=== PATIENT | male | born 1945 | race Caucasian/White ===

== ENCOUNTER 2019-10-29 23:53 | Emergency (ER) | payer OTHER ==
[~2019-10-29] VITALS: Ht 182.9 cm; Wt 69.2 kg
[2019-10-30] MEDS ORDERED: LIDOCAINE 1% PF 2 ML VIAL. ONE (00:15)
[2019-10-30] MEDS ORDERED: LIDOCAINE 1%/EPI 1:100,000 20 ML VIAL. ONE (00:16)
[2019-10-30] MEDS ORDERED: LIDOCAINE 1% Multi-Dose 20 ML VIAL. INJ ONE (00:30)
--- NOTE | 2019-10-30 01:14 | PHYS DOC ---
Adult General Chief Complaint Chief Complaint: SUICDAL IDEATION [facility] HPI Patient is a 74 year old male who presents with multiple lacerations after attempting to harm himself. Patient broke apart a disposable razor and took one of the blades and cut both sides of his neck as well as his left lower leg. He rates pain as mild. Patient denies any homicidal ideation.[] Review of Systems Review of Systems Constitutional: Denies fever or chills [] Respiratory: Denies cough or shortness of breath [] Cardiovascular: No additional information not addressed in HPI [] Musculoskeletal: Complains of bilateral neck and lower leg pain [] Integument: Lacerations to the neck and left lower leg[] Neurologic: Denies headache, focal weakness or sensory changes [] All other systems were reviewed and found to be within normal limits, except as documented in this note. Current Medications Current Medications Current Medications Medications (Trade) Dose Ordered Sig/[facility] Start Time Stop Time Status Last Admin Dose Admin Diphtheria/ Tetanus/Acell Pertussis (Boostrix) 0.5 ml ONCE ONCE 10/30/19 02:00 10/30/19 02:01 Lidocaine HCl (Lidocaine 1% 20ml Vial) 20 ml 1X ONCE 10/30/19 00:30 10/30/19 00:31 DC 10/30/19 00:20 20 ML Lidocaine HCl (Xylocaine-Mpf 1% 2ml Vial) 2 ml STK-MED ONCE 10/30/19 00:15 10/30/19 00:15 DC Lidocaine/ Epinephrine (LIDOCAINE 1%-EPI 1:100,000 Multi-Dose) 20 ml STK-MED ONCE 10/30/19 00:16 10/30/19 00:16 DC Allergies Allergies Allergies Coded Allergies Type Severity Reaction Last Updated Verified No Known Drug Allergies 10/30/19 No Physical Exam Physical Exam Constitutional: Well developed, well nourished, no acute distress, non-toxic appearance. [] HENT: Normocephalic, atraumatic, bilateral external ears normal, oropharynx moist, no oral exudates, nose normal. [] Eyes: PERRLA, EOMI, conjunctiva normal, no discharge. [] Neck: Normal range of motion, supple, no stridor. Lacerations are noted to both sides of neck extending from the lower ear anteriorly. Laceration on the left is 5 cm in length, with sharp margins, extending into subcutaneous tissue and is linear. Laceration on right side is 4 cm in length, with sharp margins, extendi ng into subcutaneous tissue and is linear. [] Cardiovascular: Regular rate and rhythm[] Lungs & Thorax: Bilateral breath sounds clear to auscultation [] Abdomen: Bowel sounds normal, soft, no tenderness. [] Skin: Lacerations as noted above. Left lower leg has a laceration measuring 11 cm with approximately 4 cm section extending down into muscle. Laceration is linear. No foreign body identified. [] Extremities: No cyanosis, no clubbing, ROM intact, no edema. [] Neurologic: Alert and oriented X 3, no focal deficits noted. [] Psychologic: Affect normal, mood normal. [] EKG EKG [] Radiology/Procedures Radiology/Procedures [] Course & Med Decision Making Course & Med Decision Making Pertinent Labs and Imaging studies reviewed. (See chart for details) Laceration Repair by me: Anesthesia: 1% with epinephrine lidocaine locally Location: Left side of neck; right side of back; left lower leg Tendon/Joint/Nerves: No injury Foreign body: None detected after copious irrigation and exploration Technique: A total of 13 Simple Interrupted Sutures were placed to left side of neck; a total of 8 simple interrupted sutures were placed to right side of neck; a total of 7 rock were placed to left lower leg Complexity: No subcutaneous sutures/mucosal repair/edge excision Post Closure Length: 5 cm to left side of neck; 4 cm to right side of neck; 11 cm to left lower leg Patient's bleeding was easily controlled in the department and there is no indication of anemia. No evidence of compartment syndrome, neurologic injury, vascular injury, open joint, tendon laceration, or foreign body. Patient is appropriate for outpatient follow up. 48 hour wound check. Scar minimization instructions given. Dragon Disclaimer Dragon Disclaimer This electronic medical record was generated, in whole or in part, using a voice recognition dictation system. Departure Departure Impression: Primary Impression: Suicidal ideation Additional Impression: Multiple lacerations Disposition: HOME, SELF-CARE Condition: STABLE Referrals: NO PCP (PCP) Patient Instructions: Laceration Care, Adult, Suicidal Feelings, How to Help Yourself, Suicide, Helping Someone Who is Suicidal Additional Instructions: Sutures to neck should be removed in 5-7 days. Rock in the left lower leg should be removed in 10-14 days. Problem Qualifiers WILD NOEL Jr. DO Oct 30, 2019 01:14
[2019-10-30 01:45] VITALS: BP 143/98
[2019-10-30] MEDS ORDERED: DIPHTH,PERTUSS(ACELL),TET TOX 0.5 ML DISP.SYRIN. VAX IM ONE (02:00)
== END 2019-10-30 02:01 | disposition home or self-care (01) ==
LOC: EEVIPCON 23:53 → ER 23:53
DX: S11.91XA Laceration without foreign body of unspecified part of neck, initial encounter (principal); S81.812A Laceration without foreign body, left lower leg, initial encounter; R45.851 Suicidal ideations; X78.8XXA Intentional self-harm by other sharp object, initial encounter; Y93.89 Activity, other specified; Y92.89 Other specified places as the place of occurrence of the external cause; Y99.8 Other external cause status
CPT/HCPCS: 12005; 99284; J3490

== ENCOUNTER 2019-11-01 23:01 | Emergency (ER) | payer OTHER ==
[~2019-11-01] VITALS: Ht 175.3 cm; Wt 84.1 kg
--- NOTE | 2019-11-01 23:10 | PHYS DOC ---
Past Medical History Past Medical History: Asthma, Constipation, GERD, High Cholesterol, Hypertension, Hypothyroid, Prostatitis Additional Past Medical Histor: MOOD DISORDER, MENTAL HEALTH DISORDER, PSORIASIS, DERMATITIS Past Surgical History: No Surgical History Additional Past Surgical Histo: UNK Smoking Status: Former Smoker Alcohol Use: None Adult General Chief Complaint Chief Complaint: SEIZURE HPI HPI 74-year-old male presents to the emergency department via EMS after seizure-type activity. Patient has no underlying history of seizures. Patient is an inmate, seizure activity was witnessed while patient was laying in bed. Patient did not fall. He has underlying history of asthma, hypertension, mental health disorder, mood disorder however no seizure history. EMS states patient prior to their arrival was postictal, he returned to baseline appears to be answering questions appropriately. He has no complaints at this time. He denies any headache, chest pain, shortness breath, nausea, vomiting, abdominal pain. She was seen at this facility on for multiple lacerations after attempting to harm himself. Review of Systems Review of Systems Constitutional: Denies fever or chills [] Respiratory: Denies cough or shortness of breath [] Cardiovascular: No additional information not addressed in HPI [] GI: Denies abdominal pain, nausea, vomiting, bloody stools or diarrhea [] Musculoskeletal: Denies back pain or joint pain [] Integument: Denies rash or skin lesions [] Neurologic: Denies headache, focal weakness or sensory changes [] All other systems were reviewed and found to be within normal limits, except as documented in this note. Current Medications Current Medications Current Medications Medications (Trade) Dose Ordered Sig/[facility] Start Time Stop Time Status Last Admin Dose Admin Magnesium Oxide (Magnesium Oxide) 400 mg 1X ONCE 11/02/19 00:30 11/02/19 00:31 11/02/19 00:15 400 MG Allergies Allergies Allergies Coded Allergies Type Severity Reaction Last Updated Verified No Known Drug Allergies 10/30/19 No Physical Exam Physical Exam Constitutional: Well developed, well nourished, no acute distress, non-toxic appearance. [] HENT: Normocephalic, atraumatic, bilateral external ears normal, oropharynx moist, no oral exudates, nose normal. [] Eyes: PERRLA, EOMI, conjunctiva normal, no discharge. [] Neck: Normal range of motion, no tenderness, supple, no stridor. [] Cardiovascular:Heart rate regular rhythm, no murmur [] Lungs & Thorax: Bilateral breath sounds clear to auscultation [] Abdomen: Bowel sounds normal, soft, no tenderness, no masses, no pulsatile masses. [] Skin: Warm, dry, no erythema, no rash. [] Back: No tenderness, no CVA tenderness. [] Extremities: No tenderness, no edema. [] Neurologic: Alert and oriented X 3, no focal deficits noted. [] Psychologic: Affect normal, judgement normal, mood normal. [] Current Patient Data Vital Signs Vital Signs Date Time Temp Pulse Resp B/P (MAP) Pulse Ox O2 Delivery O2 Flow Rate FiO2 11/01/19 23:02 98.6 79 18 155/88 (110) 96 Room Air 98.6 Lab Values Laboratory Tests Test 11/01/19 23:16 White Blood Count 4.4 x10^3/uL (4.0-11.0) Red Blood Count 4.60 x10^6/uL (4.30-5.70) Hemoglobin 13.8 g/dL (13.0-17.5) Hematocrit 41.0 % (39.0-53.0) Mean Corpuscular Volume 89 fL (79-100) Mean Corpuscular Hemoglobin 30 pg (25-35) Mean Corpuscular Hemoglobin Concent 34 g/dL (31-37) Red Cell Distribution Width 14.4 % (11.5-14.5) Platelet Count 165 x10^3/uL (140-400) Neutrophils (%) (Auto) 71 % (31-73) Lymphocytes (%) (Auto) 12 % (24-48) L Monocytes (%) (Auto) 13 % (0-9) H Eosinophils (%) (Auto) 3 % (0-3) Basophils (%) (Auto) 1 % (0-3) Neutrophils # (Auto) 3.1 x10^3/uL (1.8-7.7) Lymphocytes # (Auto) 0.5 x10^3/uL (1.0-4.8) L Monocytes # (Auto) 0.6 x10^3/uL (0.0-1.1) Eosinophils # (Auto) 0.1 x10^3/uL (0.0-0.7) Basophils # (Auto) 0.0 x10^3/uL (0.0-0.2) Sodium Level 141 mmol/L (136-145) Potassium Level 3.5 mmol/L (3.5-5.1) Chloride Level 106 mmol/L (98-107) Carbon Dioxide Level 27 mmol/L (21-32) Anion Gap 8 (6-14) Blood Urea Nitrogen 18 mg/dL (8-26) Creatinine 0.9 mg/dL (0.7-1.3) Estimated GFR (Cockcroft-Gault) 82.3 BUN/Creatinine Ratio 20 (6-20) Glucose Level 112 mg/dL (70-99) H Lactic Acid Level 1.8 mmol/L (0.4-2.0) Calcium Level 8.7 mg/dL (8.5-10.1) Magnesium Level 1.7 mg/dL (1.8-2.4) L Total Bilirubin 0.3 mg/dL (0.2-1.0) Aspartate Amino Transferase (AST) 12 U/L (15-37) L Alanine Aminotransferase (ALT) 19 U/L (16-63) Alkaline Phosphatase 78 U/L (46-116) Creatine Kinase 112 U/L (39-308) Total Protein 6.2 g/dL (6.4-8.2) L Albumin 3.1 g/dL (3.4-5.0) L Albumin/Globulin Ratio 1.0 (1.0-1.7) Laboratory Tests 11/01/19 23:16 Laboratory Tests 11/01/19 23:16 EKG EKG [] Radiology/Procedures Radiology/Procedures [facility] [address] [place] [address] IMAGING REPORT Signed PATIENT: NEHEMIAS MCCLENDON ACCOUNT: [id number] : 1945 LOCATION: ER AGE: 74 SEX: M EXAM STATUS: REG ER ORD. PHYSICIAN: KRISTIN HATHAWAY MD REASON: seizure - no history PROCEDURE: CT HEAD WO CONTRAST Exam: CT head INDICATION: Seizure TECHNIQUE: Sequential axial images through the head were obtained without the administration of IV contrast. Comparisons: None FINDINGS: No focal parenchymal lesion or hemorrhage is identified. There is no midline shift or sulcal effacement. No acute vascular territory infarction is identified. Coreas-white distinction is preserved. The ventricular system is within normal limits without compression hydrocephalus. The basal cisterns are well maintained. The visualized portions of the paranasal sinuses and mastoid air cells are well-pneumatized. No acute fractures. IMPRESSION: No acute intracranial abnormality. Exposure: One or more of the following in the visualized dose reduction techniques were utilized for this examination: 1. Automated exposure control 2. Adjustment of the MA and/or KV according to patient size Use of iterative of reconstructive technique Electronically signed by: Gianni Johnson MD (11/01/2019 11:36 PM) [id number] DICTATED and SIGNED BY: GIANNI JOHNSON MD DATE: 11/01/192335 [] Course & Med Decision Making Course & Med Decision Making Pertinent Labs and Imaging studies reviewed. (See chart for details) []74-year-old male presents to the emergency department via EMS after seizure- type activity. Patient has no underlying history of seizures. Patient is an inmate, seizure activity was witnessed while patient was laying in bed. Patient did not fall. He has underlying history of asthma, hypertension, mental health disorder, mood disorder however no seizure history. EMS states patient prior to their arrival was postictal, he returned to baseline appears to be answering questions appropriately. He has no complaints at this time. He denies any headache, chest pain, shortness breath, nausea, vomiting, abdominal pain. She was seen at this facility on for multiple lacerations after attempting to harm himself. Labs/Imaging reviewed CT negative for acute process Lactic acid normal, CPK normal Given normal labs this may not have been seizure activity, however may have been pseudo/nonepileptiform seizure activity Return precautions discussed Dragon Disclaimer Dragon Disclaimer This electronic medical record was generated, in whole or in part, using a voice recognition dictation system. Departure Departure Impression: Primary Impression: Witnessed seizure-like activity Additional Impression: Hypomagnesemia Disposition: HOME, SELF-CARE Condition: IMPROVED Referrals: NO PCP (PCP) Patient Instructions: Nonepileptic Seizures-Brief Additional Instructions: CT of head negative Labs without lactic acid elevation/CPK elevation Hypomag - replaced in ER Recommend follow up with PCP at facility Return to ER with altered mental status, fever Problem Qualifiers KRISTIN HATHAWAY MD Nov 01, 2019 23:10
--- NOTE | 2019-11-01 23:39 | RAD ---
Exam: CT head INDICATION: Seizure TECHNIQUE: Sequential axial images through the head were obtained without the administration of IV contrast. Comparisons: None FINDINGS: No focal parenchymal lesion or hemorrhage is identified. There is no midline shift or sulcal effacement. No acute vascular territory infarction is identified. Coreas-white distinction is preserved. The ventricular system is within normal limits without compression hydrocephalus. The basal cisterns are well maintained. The visualized portions of the paranasal sinuses and mastoid air cells are well-pneumatized. No acute fractures. IMPRESSION: No acute intracranial abnormality. Exposure: One or more of the following in the visualized dose reduction techniques were utilized for this examination: 1. Automated exposure control 2. Adjustment of the MA and/or KV according to patient size Use of iterative of reconstructive technique Electronically signed by: Iza Lynch MD (11/01/2019 11:36 PM) [id number]
[2019-11-01 23:47] LABS: BASO % 1 % (0-3); EOS # 0.1 x10^3/uL (0.0-0.7); EOS % 3 % (0-3); HEMOGLOBIN 13.8 g/dL (13.0-17.5); LYMPH # 0.5 x10^3/uL (1.0-4.8); LYMPH % 12 % (24-48); MEAN CORPUSCULAR HEMOGLOBIN 30 pg (25-35); MEAN CORPUSCULAR HGB CONC 34 g/dL (31-37); MEAN CORPUSCULAR VOLUME 89 fL (79-100); MONO # 0.6 x10^3/uL (0.0-1.1); MONO % 13 % (0-9); NEUT # 3.1 x10^3/uL (1.8-7.7); NEUT % 71 % (31-73); PLATELET COUNT 165 x10^3/uL (140-400); RED CELL DISTRIBUTION WIDTH 14.4 % (11.5-14.5); WHITE BLOOD COUNT 4.4 x10^3/uL (4.0-11.0)
[2019-11-01 23:57] LABS: CALCIUM 8.7 mg/dL (8.5-10.1); CREATININE 0.9 mg/dL (0.7-1.3); GFR 82.3; POTASSIUM 3.5 mmol/L (3.5-5.1)
[2019-11-02 00:10] LABS: ALBUMIN 3.1 g/dL (3.4-5.0); TOTAL BILIRUBIN 0.3 mg/dL (0.2-1.0); TOTAL PROTEIN 6.2 g/dL (6.4-8.2)
[2019-11-02] MEDS: MAGNESIUM OXIDE 400 MG TABLET PO ONE (00:15)
[2019-11-02 00:34] VITALS: BP 170/82
== END 2019-11-02 00:34 | disposition home or self-care (01) ==
LOC: EEVIPCON 23:01 → ER 23:01
DX: R56.9 Unspecified convulsions (principal); E83.42 Hypomagnesemia; K21.9 Gastro-esophageal reflux disease without esophagitis; E78.00 Pure hypercholesterolemia, unspecified; J45.909 Unspecified asthma, uncomplicated; E03.9 Hypothyroidism, unspecified; F39 Unspecified mood [affective] disorder; L40.9 Psoriasis, unspecified; I10 Essential (primary) hypertension; Z87.891 Personal history of nicotine dependence
CPT/HCPCS: 36415; 70450; 80053; 82550; 83605; 83735; 85025; 99284-25